=== PATIENT | male | born 1970 | race Caucasian/White ===

== ENCOUNTER 2020-09-17 10:28 | Outpatient (CLI) | payer OTHER, SELFPAY | END 2020-09-17 10:29 | disposition home or self-care (01) | LOC: ANHAUDASC 10:29 | PROVIDERS: PCP Family Medicine; Visit Provider Otolaryngology | DX: H91.90 Unspecified hearing loss, unspecified ear (principal); R42 Dizziness and giddiness; H93.19 Tinnitus, unspecified ear | CPT/HCPCS: 92557; 92567 ==

== ENCOUNTER 2020-09-25 16:51 | Outpatient (CLI) | payer OTHER, SELFPAY ==
--- NOTE | ~2020-09-25 | MR_ITS ---
EXAMINATION: MR IAC wo/w con DATE: 09/25/2020 18:04 INDICATION: Dizziness and giddiness. Hearing loss. Tinnitus. TECHNIQUE: Magnetic resonance imaging (MRI) of the brain, brainstem, and internal auditory canals was performed without and with 20 mL MultiHance intravenous contrast. Sequences included sagittal and ax ial T1-weighted FSE, axial diffusion-weighted FS EPI, axial T2*-weighted GRE, axial T2-weighted FLAIR Propeller, axial T2-weighted Propeller, small orktz-fn-avdm coronal FIESTA, small tpswl-cu-lkku roberto nal T1-weighted FSE, and small vxony-zd-otsg axial T1-weighted SPGR. Postcontrast sequences included axial T1-weighted FSE, small rtfwp-st-jtnq coronal T1-weighted FSE, and small dinlf-hv-vyam axial T1- weighted SPGR. Apparent diffusion coefficient (ADC) maps were created. COMPARISON: None. FINDINGS: There is no intracranial hemorrhage, acute infarction, or abnormal intracranial mass lesion . The ventricles are normal in size. The paranasal sinuses are clear. The orbits are normal. The inte rnal auditory canals and inner and middle ears are normal. There is a trace left mastoid effusion. IMPRESSION: 1. Normal brain. Reviewed, dictated and finalized at location A. [facility]DER IMPRESSION: 1. Normal brain.
[2020-09-25 17:20] LABS: Estimated Glomerular Filt Rate > 60
== END 2020-09-25 16:52 | disposition home or self-care (01) ==
PROVIDERS: PCP Family Medicine; Visit Provider Otolaryngology
DX: R42 Dizziness and giddiness (principal); H93.19 Tinnitus, unspecified ear; H90.5 Unspecified sensorineural hearing loss
CPT/HCPCS: 70553; A9577

== ENCOUNTER 2020-10-01 09:41 | Outpatient (NON) | payer OTHER, SELFPAY ==
[2020-10-02 01:01] LABS: SARS-CoV-2 RNA PCR Positive
== END 2020-10-01 09:42 ==
PROVIDERS: PCP Family Medicine; Visit Provider Nurse Practitioner Family
DX: U07.1 COVID-19 (principal); R68.89 Other general symptoms and signs; R50.9 Fever, unspecified; J02.9 Acute pharyngitis, unspecified
CPT/HCPCS: 87635; C9803; U0003

== ENCOUNTER 2020-11-14 11:30 | Outpatient (RCR) | payer OTHER, SELFPAY | END 2020-11-14 23:59 | disposition home or self-care (01) | LOC: ANHAUDIO 11:30 | PROVIDERS: PCP Family Medicine; Visit Provider Otolaryngology | DX: Z46.1 Encounter for fitting and adjustment of hearing aid (principal) | CPT/HCPCS: 99199; V5261 ==

== ENCOUNTER 2021-06-10 15:05 | Outpatient (CLI) | payer OTHER, SELFPAY ==
--- NOTE | 2021-06-10 15:17 | ECG_ITS ---
Measurements Intervals Orange Rate: 65 P: 55 WA: 161 QRS: 4 QRSD: 110 T: 15 QT: 375 QTc: 390 Interpretive Statements SINUS RHYTHM CONSIDER INFERIOR INFARCT, AGE INDETERMINATE ABNORMAL ECG Electronically Signed On 06-10-2021 15:40:45 CDT by Navarro Luu D.O.
--- NOTE | 2021-06-14 07:18 | WPDHOLTEREM ---
Holter/Event Monitor Holter/Event Monitor Date of procedure: 06/10/21 Holter/Event Procedure: 24 Hr Holter Monitor Indications: Dizziness Conclusion: 1. 24 hour holter monitor on 06/10/21. 2. Underlying rhythm is sinus rhythm. HR range 47-146 bpm; average HR 75 bpm. 3. There are 10 premature supraventricular complexes and 1 supraventricular couplet. No supraventricular tachycardia. 4. There is 1 premature ventricular complex. No ventricular tachycardia. 5. No sinoatrial or atrioventricular blocks. No significant pauses greater than 2 seconds. 6. No symptoms available for correlation.
== END 2021-06-10 15:06 | disposition home or self-care (01) ==
LOC: ANHCARD 15:06
PROVIDERS: PCP Family Medicine; Visit Provider Nurse Practitioner Family
DX: R42 Dizziness and giddiness (principal); I10 Essential (primary) hypertension; R94.31 Abnormal electrocardiogram [ECG] [EKG]
CPT/HCPCS: 93005; 93225; 93226

== ENCOUNTER 2021-06-27 07:30 | Outpatient (CLI) | payer OTHER, SELFPAY ==
--- NOTE | 2021-06-27 07:41 | EST_ITS ---
Patient Info Name: Kervin Webster Age: 50 years : 1970 Gender: Male Ht: 74 in Wt: 240 lbs BSA: 2.41 m2 Exam Date: 06/27/2021 8:31 AM Exam Location: [facility] Stress Patient Status: Outpatient Admit Date: 06/27/2021 Staff Ordering Physician: Aurea Goodwin NP Attending Provider: Aurea Goodwin NP Exercise Technologist: Yoana Baca RDCS Exercise Physician: Navarro Luu DO Exam Type: CA stress test treadmill Study Info Indications I10 - Essential (primary) hypertension A treadmill exercise stress test was performed. Summary 1. 1. Negative [place] exercise stress test for ischemic ST changes by ECG criteria. 2. 2. Good functional capacity, achieving 10 METs of workload. 3. 3. Appropriate HR response to exercise. 4. 4. Appropriate HR recovery at 1 minute post exercise. 5. 5. No imaging with stress testing. 6. 6. Patient informed of the above results. Protocol: [place] Stress ECG Details Stage: REST Duration (min): 1 min : 11 sec Speed (mph): 0.0 Grade (%): 0 HR (bpm): 69 SBP (mmHg): 127 DBP (mmHg): 74 METS: --- Stage: REST Duration (min): 26 min : 16 sec Speed (mph): 0.0 Grade (%): 0 HR (bpm): 74 SBP (mmHg): 127 DBP (mmHg): 74 METS: --- Stage: STAGE 1 Duration (min): 1 min : 0 sec Speed (mph): 1.7 Grade (%): 10 HR (bpm): 110 SBP (mmHg): 127 DBP (mmHg): 74 METS: --- Stage: STAGE 1 Duration (min): 2 min : 0 sec Speed (mph): 1.7 Grade (%): 10 HR (bpm): 105 SBP (mmHg): 127 DBP (mmHg): 74 METS: --- Stage: STAGE 1 Duration (min): 3 min : 0 sec Speed (mph): 1.7 Grade (%): 10 HR (bpm): 108 SBP (mmHg): 145 DBP (mmHg): 82 METS: --- Stage: STAGE 2 Duration (min): 1 min : 0 sec Speed (mph): 2.5 Grade (%): 12 HR (bpm): 121 SBP (mmHg): 145 DBP (mmHg): 82 METS: --- Stage: STAGE 2 Duration (min): 2 min : 0 sec Speed (mph): 2.5 Grade (%): 12 HR (bpm): 125 SBP (mmHg): 140 DBP (mmHg): 80 METS: --- Stage: STAGE 2 Duration (min): 3 min : 0 sec Speed (mph): 2.5 Grade (%): 12 HR (bpm): 130 SBP (mmHg): 140 DBP (mmHg): 80 METS: --- Stage: STAGE 3 Duration (min): 1 min : 0 sec Speed (mph): 3.4 Grade (%): 14 HR (bpm): 148 SBP (mmHg): 156 DBP (mmHg): 77 METS: --- Stage: STAGE 3 Duration (min): 2 min : 0 sec Speed (mph): 3.4 Grade (%): 14 HR (bpm): 153 SBP (mmHg): 156 DBP (mmHg): 77 METS: --- Stage: STAGE 1 Duration (min): 3 min : 0 sec Speed (mph): 1.7 Grade (%): 10 HR (bpm): 108 SBP (mmHg): 145 DBP (mmHg): 82 METS: --- Stage: STAGE 2 Duration (min): 3 min : 0 sec Speed (mph): 2.5 Grade (%): 12 HR (bpm): 130 SBP (mmHg): 140 DBP (mmHg): 80 METS: --- Stage: STAGE 3 Duration (min): 3 min : 0 sec
--- NOTE | 2021-06-27 07:41 | ECHO_ITS ---
Patient Info Name: Kervin Webster Age: 50 years : 1970 Gender: Male Ht: 74 in Wt: 240 lbs BSA: 2.41 m2 HR: 75 bpm BP: 127 / 74 mmHg Technical Quality: Good Exam Date: 06/27/2021 8:03 AM Exam Location: [facility] Patient Status: Outpatient Admit Date: 06/27/2021 Staff Ordering Physician: Aurea Goodwin NP Welding Machine Operator Friction: Yoana Baca RDCS Attending Provider: Aurea Goodwin NP Referring Physician: Buddy MCKEON; Exam Type: CA echo doppler color flow Study Info Indications I10 - Essential (primary) hypertension - DIZZINESS, BLURRED VISION Complete two-dimensional, color flow and Doppler transthoracic echocardiogram is performed. Summary 1. Complete two-dimensional, color flow and Doppler transthoracic echocardiogram is performed. 2. Left ventricular chamber dimension is normal. 3. Left ventricular systolic function is normal, estimated at 60-65%. 4. There is mildly increased left ventricular wall thickness. 5. The left ventricular diastolic function is grade I diastolic dysfunction. 6. E/e' 6 is not elevated. 7. No pulmonary hypertension, estimated pulmonary arterial systolic pressure is 28 mmHg. 8. The aortic root size at the sinus of Valsalva is borderline dilated at 4.1 cm. Left Ventricle E/e' 6 is not elevated. Left ventricular chamber dimension is normal. Left ventricular systolic function is normal, estimated at 60-65%. There is mildly increased left ventricular wall thickness. The left ventricular diastolic function is grade I diastolic dysfunction. Right Ventricle Right ventricular chamber dimension is normal. Right ventricular systolic function is normal. Left Atria Left atrial chamber dimension is normal. Right Atria Right atrial chamber dimension is normal. Aortic Valve The aortic valve is trileaflet. There is no aortic valve stenosis. There is no aortic valve regurgitation. Pulmonic Valve There is no pulmonic regurgitation. Mitral Valve There is no mitral valve stenosis. There is no mitral valve regurgitation. Tricuspid Valve There is no tricuspid valve regurgitation. No pulmonary hypertension, estimated pulmonary arterial systolic pressure is 28 mmHg. Pericardium/Pleural There is no pericardial effusion. Inferior Vena Cava Normal inferior vena cava with >50% collapse upon inspiration consistent with normal right atrial pressure, 5 mmHg. Aorta The aortic root size at the sinus of Valsalva is borderline dilated at 4.1 cm. Left Ventricular Outflow Tract Name Value Normal LVOT 2D LVOT Diameter 2.2 cm LVOT Doppler LVOT Peak Gradient 4 mmHg LVOT Mean Gradient 2 mmHg LVOT VTI 19 cm LVOT VTI/AV VTI Ratio 0.9 LVOT Stroke Volume 74 ml LVOT CO 5.6 l/min LVOT CI 2.3 l/min/m2 Pulmonic Valve Name Value
== END 2021-06-27 07:31 | disposition home or self-care (01) ==
LOC: ANHCARD 07:31
PROVIDERS: PCP Family Medicine; Visit Provider Nurse Practitioner Family
DX: R42 Dizziness and giddiness (principal); I10 Essential (primary) hypertension
CPT/HCPCS: 93017; 93306

== ENCOUNTER 2021-09-11 12:16 | Outpatient (RCR) | payer OTHER, SELFPAY ==
--- NOTE | 2021-09-11 13:43 | PTOPEVAL ---
PHYSICAL THERAPY EVALUATION AND PLAN OF CARE 09-11-21 Thank you for referring Kervin Webster to [facility], for the diagnosis of vestibular rehab. Hardik's plan of care is ?0-2 x/week for 4 weeks. He is to call if he has any additional questions, or for an appointment, if additional treatment is needed. Please review, sign, date and return this plan of care PREMA. I agree with and certify that the following plan of care is medically necessary. Referring Physician Date Attending Provider: Dragan Cortez MD CC: Aurea Goodwin APN--per pt request, general care provider PT Outpatient Evaluation Document 09/11/21 12:30 OLIVIER (Rec: 09/11/21 13:43 OLIVIER [id number]) Outpatient Past Medical History Past Medical History Source of Past Medical History Patient Neurological History Hx Neurological Disorders No Significant History Cardiovascular History Hx Hypertension Yes: meds control; normal 120- 130/70-80 Respiratory History Hx COVID-19 Yes: Sep 2020-ill about 10 days; Gastrointestinal History Hx Gastrointestinal Disorders No Significant History Genitourinary History Hx Genitourinary Disorders No Significant History Musculoskeletal History Hx Musculoskeletal Disorders No Significant History Endocrine History Hx Endocrine Disorders No Significant History Evaluation Information Problem Diagnosis vestibular rehab Onset Aug 2020 Prior Level of Function Activity Level (Last 3 Months) 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 Activity of Daily Living Ability Independent Indoor/Home Mobility Independent Community Mobility Independent Stairs Ability Independent Functional Cognition (Planning, Shopping Independent , Taking Medications) Cooking Yes Cleaning Yes Laundry Yes Shopping Yes Driving Yes Pain Assessment Timing of Pain Assessment Timing of Pain Assessment Assessment Self Report Self Report Pain Level 0 Pain Score Pain Score 0: Self Report Cervical and Lumbar ROM Cervical ROM Cervical ROM Comments cervical active ROM is WNL and no pain reported Gait Assessment Gait Assessment Ambulation Ability Independent Additional Ambulation Comments no gait abnormalities noted with walking to dept 150' Vestibular Evaluation Vestibular Medical Information Past Vestibular History Infection,Sinus/Allergy Issues Medical History Comments past few years, have started having seasonal allergies; had R e
--- NOTE | 2021-10-21 10:17 | PCPTNOTE ---
PHYSICAL THERAPY DISCHARGE 10-21-21 Attending Provider: Dragan Cortez MD Patient:Kervin Webster Date of :1970 Hardik has not returned for any further treatments since the PT evaluation on 09/11/2021, therefore he will be discharged at this time. The goals were not addressed. Thank you for referring this patient to [facility]. Please review, sign, date and return this discharge summary PREMA. I have been updated about the patient's current status and I agree with discharge from the above service at this time. Referring Physician Date
== END 2021-10-22 10:03 | disposition home or self-care (01) ==
LOC: ANHPT 12:16
PROVIDERS: PCP Family Medicine; Visit Provider Otolaryngology
DX: H81.10 Benign paroxysmal vertigo, unspecified ear (principal)
CPT/HCPCS: 97162

== ENCOUNTER 2021-09-18 12:37 | Outpatient (CLI) | payer OTHER, SELFPAY ==
--- NOTE | ~2021-09-18 | US_ITS ---
EXAMINATION: US carotid duplex BI DATE: 09/18/2021 13:25 INDICATION: Dizziness and giddiness. Hearing loss and tinnitus. TECHNIQUE: Grayscale, color Doppler, and pulsed Doppler images of the cervical carotid arteries were obtained. The degree of vessel stenosis is placed in one of the following categories: normal, <50%, 5 0-69%, >=70% but less than near-occlusion, near-occlusion, or total occlusion. Note that percent sten osis relative to normal distal artery lumen diameter is indirectly measured from velocity measurement s as described by Naun, et al. Radiology 2003; 229:340-346. COMPARISON: None. FINDINGS: RIGHT: The right common carotid artery (CCA) peak systolic velocity (PSV) is 103 cm/s. The right internal ca rotid artery (ICA) PSV is 130 cm/s. The right ICA end-diastolic velocity (EDV) is 20 cm/s. The right ICA/CCA PSV ratio is 1.3. Grayscale and color Doppler images demonstrate no evident stenosis or plaqu e in the ICA. The external carotid artery (ECA) PSV is 114 cm/s. There is antegrade flow in the right vertebral artery. LEFT: The left CCA PSV is 124 cm/s. The left ICA PSV is 102 cm/s. The left ICA EDV is 22 cm/s. The left ICA /CCA PSV ratio is 0.8. Grayscale and color Doppler images yield an estimate of <50% diameter reductio n from plaque in the ICA. The ECA PSV is 116 cm/s. There is antegrade flow in the left vertebral aaron ry. IMPRESSION: 1. No evident plaque or stenosis in the right internal carotid artery. 2. <50% stenosis in the left internal carotid artery. Reviewed, dictated and finalized at location A. CUTTER
== END 2021-09-18 12:38 | disposition home or self-care (01) ==
PROVIDERS: PCP Family Medicine; Visit Provider Nurse Practitioner Family
DX: R42 Dizziness and giddiness (principal); I10 Essential (primary) hypertension; R73.03 Prediabetes; H93.19 Tinnitus, unspecified ear; I65.22 Occlusion and stenosis of left carotid artery
CPT/HCPCS: 93880

== ENCOUNTER 2025-05-26 00:12 | Day surgery (SDC) | payer OTHER, SELFPAY ==
[2025-05-11 13:53] VITALS: BMI 28.3
--- OUTSIDE RECORDS SUMMARY | 2025-05-26 00:14 | XMS_ITS | Continuity of Care Document ---
Author Organization [facility] Address [address] [place] [address] [address] [place] [address] Phone Care Team Providers Care Software Security Architect Name Role Phone Austin Kaur Unavailable Unavailable Procedures Procedure Date Office/outpatient Visit, Est Remove Foreign Body From Eye Advance Directives Directive Yes / No Effective Date File Name No Information Encounters Encounter Description Practice Location Reason(s) For Visit Diagnoses Date Provider Providers Copied on Encounter Office/outpat ient Visit, Est [facility], [address] [place] [address] [address], [place], [place], [id number], tel:[phone] [facility] No Information 8 Natasha Avila. [address] [place] [address], [place], [place], [facility], . tel:[phone] [facility], [address] [place] [address] [address], [place], [place], [id number], tel:[phone] [facility] No Information 8 [facility] Turner. [facility] [address] [facility] [address], [place], [address], [place]. tel:[phone] Referring Provider: Johnny Rankin [facility] [address], [place], [place], [facility]. tel:[phone] Family History Family Member Type Diagnosis Age At Onset No Information Payers Payer name Insurance type Covered green party ID Niranjan virgen(s) Nicholas Hopson [id number] Social History Type Description Quantity Date Captured Comments Sex Male Smoking Status No Information Chief Complaint And Reason For Visit No Information Reason For Referral Reason For Referral No Information History Of Present Illness Encounter Date Complaint History Of Prese nt Illness No Information Functional Status Date Functional Assessmen t No Information Instructions Date Instruction Additional Infor mation No Information Assessments Type Assessment Date No Information Patient Care Teams Name Effective Dates (start - stop) Status Members No Information
--- OUTSIDE RECORDS SUMMARY | 2025-05-26 00:14 | XMS_ITS | Clinical Summary ---
Author Organization [facility] Address [address] [address] Care Team Providers Care Product Manager Medical Device Name Role Phone Gianni Dolan MD Primary Care Provider [phone] Source Comments [facility],non-owned Affiliates and Associated Physician Practices is amultiple site organization consisting of ambulatory clinics and hospital sitesin [place] and [place]. This disclosure is being madepursuant to the Care Everywhere program and may not contain all information available regarding this patient. Last updated 18.[facility] Allergies No known active allergies Medications * Be aware that medications may not be up to date on this document. Alwaysverify current medications with the patient. lisinopril (PRINIVIL; ZESTRIL) 5 MG tablet Take 1 (one) tablet by mouth once daily 04/30/20 22 Active diazePAM (VALIUM) 2 MG tabletIndications: Episodic recurrent vertigo Take 1 (one) tablet by mouth 2 times daily as needed (Take during episodes of severe vertigo.) 30 tablet 3 05/28/20 22 Active Levocetirizine Dihydrochloride (XYZAL ALLERGY 24HR PO) Take 1 tablet by mouth once daily Active allergy injection Per [facility]olaryngology protocol Active fluticasone propionate (Flonase) 50 MCG/ACT nasal spray [place] 2 (two) sprays into each nostril once daily 48 g 4 09/09/20 22 Active cetirizine (ZyrTEC ALLERGY) 10 MG gel capsule Take 1 (one) capsule by mouth 2 times daily Active SUMAtriptan (Imitrex) 25 MG tabletIndications: Vestibular migraine Take 1 tab by mouth once at first sign of migraine. May repeat one time after 2 hours if needed. 9 tablet 07/13/20 23 Active Additional Information Patient taking differently: 25 mg Oral ONCE PRN, Migraine, Take 1 tab by mouth once at first sign of migraine. May repeat one time after 2 hours if needed., Reported on 09/29/2023 cyclobenzaprine (Flexeril) 10 MG tabletIndications: Chronic bilateral low back pain without sciatica Take 0.5 (one-half) tablet by mouth 3 times daily as needed for Muscle Spasms 45 tablet 5 11/30/19 24 Active Additional Information Patient not taking.Reported on 01/05/2025 ciprofloxacin-dexA METHasone (Ciprodex) 0.3-0.1 % otic suspensionIndicati ons:Acute hemorrhagic otitis externa of left ear Apply 4 drops to the affected ear twice daily x 7 days 10 mL 05/27/20 24 Active Additional Information Patient not taking.Reported on 01/05/2025 EPINEPHrine (Epipen) 0.3 MG/0.3ML auto-injector pen Inject 0.3 mL into muscle once as needed for Anaphylaxis 0.6 mL 01/06/20 25 Active Syringe/Needle, Disp, (SYRINGE 3CC/25GX5/8) 25G X 5/8 3 ML MISC For use with allergy serum as directed 30 Each 2 03/20/20 25 Active azelastine (Astelin) 0.1 % nasal sprayIndications:V asomotor Rhinitis [place] 1 (one) spray to 2 (two) sprays into each nostril 2 times daily as needed Aim tip of spray bottle towards the SAME EYE as the nostril you are spraying in (e.g. when spraying into the left nostril, aim it towards the left eye) Reasons: Nasal Mucous Membrane Swelling without Infection/Allergy 30 mL 5 03/20/20 25 Active Active Problems Problem Noted Date Diagnosed Date Dizziness 08/06/2022 Encounters Date Type Department Care Team Description 05/04/2025 Telephone [facility] [address] [place] [address] Brandon Dorman MD Immunotherapy (Vial count) 03/19/2025 Refill [facility] [address] [place] [phone] Kamille Yu APRN-PSYCHOLOGIST CLINICAL MEDICATION REFILL 03/19/2025 Refill [facility] [address] [place] [phone] Kervin Hobson MD MEDICATION REFILL from Last 3 Months Immunizations Immunization Administration Dates Next Due TDAP, HISTORIC VACCINE 08/22/2019 Family History Medical History Relation Name Comments Cancer - Thyroid Mother Diabetes - Type 2 Mother Hypertension Mother Relation Name Status Comments Mother Social History Tobacco Use Types Packs/Day Years Used Date Smoking Tobacco: Former Smokeless Tobacco: Never Chew Tobacco Cessation:Counseling Given: Not Answered Sex and Gender Information Value Date Recorded Sex Assigned at Not on file Legal Sex Male 12:37 PM CDT Gender Identity Not on file Sexual Orientation Not on file Last Filed Vital Signs Vital Sign Reading Time Taken Comments Blood Pressure 152/100 01/05/2025 10:55 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 Pulse 72 01/05/2025 10:55 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 Temperature 36.2 C (97.1 F) 11/30/2023 8:09 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 Respiratory Rate - - Oxygen Saturation 96% 05/27/2024 10:28 AM CDT Inhaled Oxygen Concentration - - Weight 108.4 kg (239 lb) 01/05/2025 10:55 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 Height 188 cm (6' 2) 01/05/2025 10:55 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 Body Mass Index 30.69 01/05/2025 10:55 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 Plan of Treatment Upcoming Encounters Date Type Department Care Team (Late st Contact Info) Description 07/21/2025 8:00 AM CDT Testing Visit [facility] [address] [place] [phone] Destin ValentinaJadyn william [address] [facility] [address] [place] [address] 07/21/2025 9:00 AM CDT Office Visit [facility] [address] [facility] [place] [address] Danny Medina, GOLF TECHNICIAN-PSYCHOLOGIST CLINICAL [address] [facility] [address] [place] [address] Health Maintenance Due Date Last Done Comments COLOGUARD (AGES 45-75) - COL ON CA SCREENING 1970 COLON MONITORING 1972 COLONOSCOPY - COLON CA SCREENING 1972 CT COLONOGRAPHY - COLON CA SCREENING 1970 Colorectal Cancer Screening 1970 FIT - COLON CA SCREENING 1972 FLEX SIG - COLON CA SCREENING 1972 LIPID TESTING 1972 HIV SCREENING 1987 HEPATITIS C SCREENING 09/16/1990 HEPATITIS B VACCINE (1 of 3 - 19+ 3-dose series) 1991 PNEUMOCOCCAL VACCINE 50+ (1 of 1 - PCV) 2022 ZOSTER VACCINE (1 of 2) 2022 COVID-19 VACCINE (3 - 2023-2 5 season) 2024 10/08/2021, 01/04/2021 DEPRESSION SCREENING 11/02/2024 INFLUENZA VACCINE (#1) 2025 SCREENING FOR DIABETES 11/30/2026 11/30/2023 DTAP/TDAP/TD VACCINES (2 - T d or Tdap) 08/22/2029 08/22/2019 HIB VACCINE Aged Out No longer eligi ble based on patient's age to complete this topic HPV VACCINE Aged Out No longer eligi ble based on patient's age to complete this topic MENINGOCOCCAL (Group B) VACCINE SHARED DECISION-MAKING Aged Out No longer eligible based on patient's age to complete this topic MENINGOCOCCAL GROUPS A/C/Y/W VACCINE Aged Out No longer eligible b ased on patient's age to complete this topic Procedures Procedure Name Priority Date/Time Associated Diagnosis Comments COMPREHENSIVE METABOLIC PANEL Routine 11/30/2023 8:56 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 Chronic bilateral low back pain without sciatica from Last 3 Months or Most Recently Relevant to Health Maintenance Results * (ABNORMAL) COMPREHENSIVE METABOLIC PANEL (11/30/2023 8:56 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) BUN 17 7 - 26 mg/dL 11/30/2023 9:46 AM [facility] Creatinine 0.88 0.71 - 1.16 mg/dL 11/30/2023 9:46 AM [facility] Sodium 139 136 - 145 mmol/L 11/30/2023 9:46 AM [facility] Potassium 4.3 3.5 - 4.5 mmol/L 11/30/2023 9:46 AM [facility] Chloride 105 98 - 107 mmol/L 11/30/2023 9:46 AM [facility] CO2 23 22 - 29 mmol/L 11/30/2023 9:46 AM [facility] Glucose 134(H) 70 - 115 mg/dL 11/30/2023 9:46 AM [facility] Calcium 9.4 8.4 - 10.2 mg/dL 11/30/2023 9:46 AM [facility] Protein Total 7.2 6.0 - 8.3 g/dL 11/30/2023 9:46 AM [facility] Albumin 3.8 3.4 - 5.0 g/dL 11/30/2023 9:46 AM [facility] Bilirubin Total 0.3 0.2 - 1.2 mg/dL 11/30/2023 9:46 AM [facility] Alkaline Phosphatase 54 40 - 150 U/L 11/30/2023 9:46 AM [facility] ALT 11 5 - 55 U/L 11/30/2023 9:46 AM [facility] AST 16 5 - 34 U/L 11/30/2023 9:46 AM [facility] Anion Gap 11 6 - 16 11/30/2023 9:46 AM [facility] BUN/Creatinine Ratio 19 7 - 23 11/30/2023 9:46 AM [facility] Osmolality Calculated 292 275 - 295 mOsm/kg 11/30/2023 9:46 AM [facility] Albumin/Globulin Ratio 1.1 1.1 - 2.3 11/30/2023 9:46 AM [facility] eGFR by CKD-EPI >90 >=90 mL/min/1.7 3 m2 11/30/2023 9:46 AM [facility] Blood BLOOD SPECIMEN / Unknown Lab Venipuncture / Unknown 11/30/2023 8:56 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 Care Teams Product Manager Medical Device Relationship Specialty Start Date End Date Gianni Dolan MD [address] [place] [address] PCP - General Family Medicine 4/23/25
[2025-05-26 06:53] VITALS: BP 137/89; PULSE 77; RESP 18; TEMP 36.2; O2SAT 96
[2025-05-26] MEDS: LACTATED RINGERS 1,000 ML 150 ML IV CONT (07:04)
--- NOTE | 2025-05-26 07:25 | PM.IMHP ---
H&P: HPI History of Present Illness Date/Time: 05/26/25 07:25 Chief Complaint: screening colonoscopy Narrative: This is the patient's first colonoscopy. There are no GI symptoms and there is no family history of colorectal cancer. Review of Systems Review of Systems: All systems reviewed & are unremarkable except as noted in HPI and below PMFSH Past Medical History Medical History BMI 26.0-26.9,adult BMI 28.0-28.9,adult COVID-19 BMI 30.0-30.9,adult BMI 31.0-31.9,adult Family History Family History Mother Hypertension Family history of malignant neoplasm of thyroid Diabetes mellitus COVID-19 Breast cancer Father Family history of throat cancer Stomach cancer Sibling Heart disease Hypertension Diabetes mellitus Social History Social History (Updated 02/06/25 @ 17:59 by Adenike Gallagher) Smoking packs per day: 1 Smoking cigarettes per day: 20.0 Years smoked: 15 Smoking pack-years: 15.00 Smoking status: Former smoker Tobacco type: cigarettes Second hand tobacco smoke exposure: No Smoking end date: 05/01/16 Alcohol intake: current Drinks per week: 6 Alcohol use details: Beer Substance use: never Substance use type: does not use Do You Feel Safe in your Home?: Yes Lack of Transportation: No Lack of Food: Never True Current Housing: I Have Housing Concerned About Future Housing: No Difficulty Paying Gas/Electric Bills: No Difficulty Paying for Meds: No Currently Unemployed: No Education: Trade/Vocational Certificate Difficulty w/ Childcare or Family Care: No Living arrangements: with family Occupation/Education: occupation 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 Gender identity (if verbalized by the patient): Male Spiritual care concerns: No Meds Home Medications and Allergies Home Medications ?Medication ?Instructions ?Recorded ?Confirmed ?Type azelastine 137 mcg (0.1 %) nasal 1 spray intranasal DAILY 02/06/25 05/26/25 History spray cetirizine 10 mg tablet (Zyrtec) 10 mg PO DAILY 02/06/25 05/26/25 History cyclobenzaprine 10 mg tablet 10 mg PO TID PRN muscle spasm 02/06/25 05/11/25 History diazepam 2 mg tablet 2 mg PO BID PRN anxiety 02/06/25 05/11/25 History epinephrine 0.3 mg/0.3 mL 0.3 ml subcut ONCE 02/06/25 05/11/25 History injection, auto-injector fluticasone propionate 50 1 spray intranasal DAILY 02/06/25 05/26/25 History mcg/actuation nasal spray,suspension (Flonase Allergy Relief) lisinopril 5 mg tablet 5 mg PO DAILY #90 tabs 02/06/25 05/26/25 Rx sumatriptan succinate 25 mg tablet See Rx Instructions PO .COMPLEX 02/06/25 05/11/25 History Allergy injection See Rx Instructions .Route [id number] 05/11/25 05/26/25 History Allergies Allergy/AdvReac Type Severity Reaction Status Date / Time No Known Allergies Allergy Mild Verified 05/26/25 06:50 Vital Signs Vital Signs - 24 hr 05/26/25 06:53 Temperature 97.1 F L Pulse Rate 77 Respiratory Rate 18 Blood Pressure 137/89 Pulse Oximetry 96 Oxygen Delivery Room Air Exam Const: General: cooperative and healthy appearing Resp: Effort & Inspection: normal respiratory effort and able to speak in complete sentences Auscultation: clear to auscultation bilaterally Cardio: Rate: regular rate Rhythm: regular rhythm GI: Inspection: normal to inspection GI Palp: No No hepatosplenomegaly present Auscultation: normal bowel sounds Rectal Exam: deferred Skin: General skin exam: normal color Psych: Appearance: grossly normal Mental Status: mental status grossly normal Assessment and Plan Assessment and plan (1) Encounter for screening colonoscopy: Code(s): Z12.11 - Encounter for screening for malignant neoplasm of colon Status: Acute Assessment and Plan: The patient is deemed a good candidate for the procedure. Consent signed. Will proceed.
--- NOTE | 2025-05-26 07:33 | P.PNAN_ITS ---
Anes - Initial Pre Proc Eval Procedure: Operation Date: 05/26/25 08:00 Proposed Procedures p Screening Colonoscopy - Adi Gibbs MD Date/Time: 05/26/25 07:33 Surgeon: Adi Gibbs MD Pre Op Diagnosis: Encounter for screening for malignant neoplasm of Patient Data Age: 54 Gender: M Height: 1.88 m Weight: 102 kg Last Vital Signs Temp 36.2 C L 05/26/25 06:53 Pulse 77 05/26/25 06:53 Resp 18 05/26/25 06:53 BP 137/89 05/26/25 06:53 Pulse Ox 96 05/26/25 06:53 O2 Del Method Room Air 05/26/25 06:53 Allergies Allergy/AdvReac Type Severity Reaction Status Date / Time No Known Allergies Allergy Mild Verified 05/26/25 06:50 Home Medications ?Medication ?Instructions ?Recorded ?Confirmed ?Type azelastine 137 mcg (0.1 %) nasal 1 spray intranasal DAILY 02/06/25 05/26/25 History spray cetirizine 10 mg tablet (Zyrtec) 10 mg PO DAILY 02/06/25 05/26/25 History cyclobenzaprine 10 mg tablet 10 mg PO TID PRN muscle spasm 02/06/25 05/11/25 History diazepam 2 mg tablet 2 mg PO BID PRN anxiety 02/06/25 05/11/25 History epinephrine 0.3 mg/0.3 mL 0.3 ml subcut ONCE 02/06/25 05/11/25 History injection, auto-injector fluticasone propionate 50 1 spray intranasal DAILY 02/06/25 05/26/25 History mcg/actuation nasal spray,suspension (Flonase Allergy Relief) lisinopril 5 mg tablet 5 mg PO DAILY #90 tabs 02/06/25 05/26/25 Rx sumatriptan succinate 25 mg tablet See Rx Instructions PO .COMPLEX 02/06/25 05/11/25 History Allergy injection See Rx Instructions .Route [id number] 05/11/25 05/26/25 History Patient hx anesthesia problems: none Family hx anesthesia problems: none Results Review: All pre-operative results and documents have been reviewed as part of the pre-operative evaluation. [facility], [facility] Past Medical History Medical History BMI 26.0-26.9,adult BMI 28.0-28.9,adult COVID-19 BMI 30.0-30.9,adult BMI 31.0-31.9,adult Family History Family History Mother Hypertension Family history of malignant neoplasm of thyroid Diabetes mellitus COVID-19 Breast cancer Father Family history of throat cancer Stomach cancer Sibling Heart disease Hypertension Diabetes mellitus Social History Social History (Updated 02/06/25 @ 17:59 by Adenike Gallagher) Smoking packs per day: 1 Smoking cigarettes per day: 20.0 Years smoked: 15 Smoking pack-years: 15.00 Smoking status: Former smoker Tobacco type: cigarettes Second hand tobacco smoke exposure: No Smoking end date: 05/01/16 Alcohol intake: current Drinks per week: 6 Alcohol use details: Beer Substance use: never Substance use type: does not use Do You Feel Safe in your Home?: Yes Lack of Transportation: No Lack of Food: Never True Current Housing: I Have Housing Concerned About Future Housing: No Difficulty Paying Gas/Electric Bills: No Difficulty Paying for Meds: No Currently Unemployed: No Education: Trade/Vocational Certificate Difficulty w/ Childcare or Family Care: No Living arrangements: with family Occupation/Education: occupation 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 Informed Consent: The patient's anesthetic plan and its attendant risks and benefits were discussed with the patient/family/POA. Questions were solicited and answers provided to the satisfaction of the patient/family/POA.
[2025-05-26 08:23] VITALS: BP 106/77; PULSE 73; RESP 20; O2SAT 97
[2025-05-26 08:33] VITALS: BP 107/76; PULSE 68; RESP 18; O2SAT 99
[2025-05-26 08:43] VITALS: BP 117/83; PULSE 60; RESP 15; O2SAT 97
== END 2025-05-26 08:50 | disposition home or self-care (01) ==
PROVIDERS: PCP Family Medicine; Referring Provider Family Medicine; Visit Provider Internal Medicine Gastroenterology
PROC: 0DJD8ZZ Inspection of Lower Intestinal Tract, Via Natural or Artificial Opening Endoscopic (ICD-10-PCS; CPT 45378; principal; 2025-05-26 08:00)
DX: Z12.11 Encounter for screening for malignant neoplasm of colon (principal); Z87.891 Personal history of nicotine dependence
CPT/HCPCS: 45378; J2003; J2704; J7120

== ENCOUNTER 2025-07-10 10:17 | Outpatient (CLI) | payer OTHER, SELFPAY ==
--- NOTE | ~2025-07-10 | XR_ITS ---
EXAM/ PROCEDURE: XR knee LT min 4V - 07/10/2025 10:24 CDT HISTORY: 54 years old Male with Pain in left knee x 2 weeks COMPARISON: None available TECHNIQUE: Four view(s) FINDINGS/ IMPRESSION: There are no fractures or dislocations.Joint space narrowing, subchondral sclerosis, subchondral cyst formation and osteophyte formation, compatible with mild osteoarthritis. Reviewed, dictated and finalized at location N.
--- NOTE | ~2025-07-10 | XR_ITS ---
XR hip LT min 2V 07/10/2025 10:39 Indication: Left hip pain Procedure: 2 views left hip Comparison: No prior studies for comparison. Findings: There is moderate-severe osteoarthritis of the left hip. No fracture or traumatic malalignment. No soft tissue abnormality. No foreign bodies. Impression: 1: Moderate-severe osteoarthritis of the left hip with near complete joint space loss superiorly. Reviewed, dictated and finalized at location O. Impression: 1: Moderate-severe osteoarthritis of the left hip with near complete joint spac e loss superiorly.
== END 2025-07-10 10:18 | disposition home or self-care (01) ==
LOC: GOSHIMG 10:18
PROVIDERS: PCP Family Medicine; Visit Provider Family Medicine
DX: M25.562 Pain in left knee (principal); M16.12 Unilateral primary osteoarthritis, left hip
CPT/HCPCS: 73502; 73564